=== PATIENT | female | born 1930 | race Caucasian/White ===

== ENCOUNTER 2016-11-28 10:43 | Emergency (ER) | payer MEDICARE, BC ==
[~2016-11-28] VITALS: Ht 154.9 cm; Wt 72.6 kg
[~2016-11-28 10:43] MED LIST: CRESTOR PO; CYMBALTA PO; DIOVAN PO
--- NOTE | 2016-11-28 10:53 | NUR ---
PT IS IN ROOM #2A. DR GREEN EVALUATED THE PT.
[2016-11-28] MEDS ORDERED: LEVO50TA8 PO (10:59)
[2016-11-28] MEDS ORDERED: VALS40TA11 PO (10:59)
[2016-11-28] MEDS ORDERED: BIOT1TAB PO (10:59)
[2016-11-28] MEDS ORDERED: DULO30CA2 PO (10:59)
[2016-11-28] MEDS ORDERED: ROSU5TAB PO (10:59)
[2016-11-28] MEDS ORDERED: CHOL20004 PO (10:59)
[2016-11-28] MEDS ORDERED: SOLI5TAB2 PO (10:59)
[2016-11-28] MEDS ORDERED: PREG100C PO (10:59)
[2016-11-28] MEDS ORDERED: [UNRECOGNIZED DRUG - CODE] PO (10:59)
[2016-11-28 11:30] LABS: BASOPHILS # (AUTO) 0.1 K/uL (0.0-8.0); BASOPHILS % (AUTO) 0.7 % (0.0-2.0); EOSINOPHILS # (AUTO) 0.4 K/uL (0.0-0.7); EOSINOPHILS % (AUTO) 5.3 % (0.0-7.0); HEMATOCRIT 40.3 % (37-47); HEMOGLOBIN 13.4 G/DL (12.0-16.0); LYMPHOCYTES # (AUTO) 1.8 K/UL (0.8-4.8); LYMPHOCYTES % (AUTO) 23.4 % (20.5-51.5); MEAN CORPUSCULAR HEMOGLOBIN 28.7 UUG (27.0-31.0); MEAN CORPUSCULAR HGB CONC 33 g/dL (32.0-37.0); MEAN CORPUSCULAR VOLUME 86.5 FL (81.0-99.0); MONOCYTES # (AUTO) 0.8 K/UL (0.1-1.30); MONOCYTES % (AUTO) 10.8 % (0.0-11.0); NEUTROPHILS # (AUTO) 4.6 K/UL (1.8-8.9); NEUTROPHILS % (AUTO) 59.8 % (38.5-71.5); PLATELET COUNT (AUTO) 248 K/UL (150-450); RED BLOOD CELL COUNT(AUTO) 4.66 MIL/UL (4.2-5.4); WHITE BLOOD COUNT (AUTO) 7.7 K/UL (4.0-11.2)
[2016-11-28 11:39] LABS: ALANINE AMINOTRANSFERASE 36 U/L (14-59); ALKALINE PHOSPHATASE 60 U/L (50-136); ASPARTATE AMINOTRANSFERASE 29 U/L (15-37); BILIRUBIN,TOTAL 0.6 mg/dL (0.2-1.0); CARBON DIOXIDE 23 mmol/L (21-32); CHLORIDE 104 mmol/L (98-107); CREATINE KINASE, TOTAL 227 U/L (26-192); GLUCOSE 94 mg/dL (74-106); POTASSIUM 3.9 mmol/L (3.5-5.1); UREA NITROGEN, BLOOD 17 mg/dL (7-18)
[2016-11-28] MEDS: IV NORMAL SALINE 250 ML IV ONE (11:46)
--- NOTE | 2016-11-28 13:20 | NUR ---
PT WAS D/C TO HOME. D/C INSTRUCTIONS GIVEN TO THE PT. NO S/S OF ACUTE DISTRESS AT THIS TIME.
[2016-11-28 13:21] VITALS: BP 128/77
== END 2016-11-28 13:22 | disposition home or self-care (01) ==
LOC: ER 10:43
DX: S00.03XA Contusion of scalp, initial encounter (principal); S06.0X0A Concussion without loss of consciousness, initial encounter; R55 Syncope and collapse; E78.5 Hyperlipidemia, unspecified; I10 Essential (primary) hypertension; K21.9 Gastro-esophageal reflux disease without esophagitis; Z88.0 Allergy status to penicillin; W06.XXXA Fall from bed, initial encounter; Y93.89 Activity, other specified; Y92.89 Other specified places as the place of occurrence of the external cause; Y99.8 Other external cause status
CPT/HCPCS: 36415; 70030-TC; 70450; 71010; 85025; 85610; 93005; A4663; J7030